=== PATIENT | male | born 1940 | race Caucasian/White ===

== ENCOUNTER 2017-07-08 05:09 | Inpatient (IN) ==
[2017-07-08] MEDS ORDERED: 0.9 % Sodium Chloride 1,000 ML IVC ONE ×2 (05:22→06:44)
[2017-07-08] MEDS ORDERED: Acetaminophen 325 MG TABLET PO ONE (05:25)
[2017-07-08 05:33] LABS: Basophils # 0.1 K/mcL (0.0-0.2); Basophils % 0.5 %; Eosinophils # 0.1 K/mcL (0.0-0.6); Eosinophils % 0.8 %; Hematocrit 34.2 % (37.5-50.1); Hemoglobin 10.2 g/dL (12.9-16.9); Immature Granulocytes % 0.5 % (0-4); Lymphocytes # 0.7 K/mcL (0.6-4.6); Lymphocytes % 5.4 %; Mean Corpuscular HGB Conc 29.8 g/dL (31.6-35.5); Mean Corpuscular Hemoglobin 22.7 pg (28.0-33.3); Mean Platelet Volume 7.9 fL (9.4-12.4); Monocytes # 0.7 K/mcL (0.0-1.3); Neutrophils # 10.6 K/mcL (1.6-8.9); Platelet Count 402 K/mcL (140-400); Red Cell Distribution Width 17.5 % (11.5-14.5); Segmented Neutrophils % 86.8 %
--- NOTE | 2017-07-08 05:35 | Emergency Department Note ---
Disposition Clinical Impression: UTI (urinary tract infection), Sepsis Disposition: Admitted As Inpatient Condition: Fair Time of Disposition: 06:03 General Adult HPI - General Chief complaint: ED Dizziness Stated complaint: dizzy,chills,pain at surg site Time Seen by Provider: 07/08/17 05:11 Source: patient, family Limitations: no limitations Nursing Notes Reviewed: Yes Vital Signs Reviewed: Yes - History of Present Illness HPI Narrative: Pt is a 77-year-old male with a past medical history of HTN, Hyperlipidemia, Cardiac Stent (x 1 2012 and 2013) that presents the ED with chief complaint fever, chills, nausea and abdominal pain over surgical site x 3 days. Patient recently had a right open inguinal hernia by Dr. Lake on 06/18/17. He denies any vomiting, chest pain, shortness of breath, focal deficit, headache, change in vision or any other symptoms such complaints. Patient's son at bedside and states that patient has been slightly confused over the past 2 days. Pt recently had his martinez removed (Thursday) which was in place for 3 weeks prior. He denies any dysuria, urinary urgency/frequency, hematuria or back pain. Pt Subjective Complaint: fever, chills, confusion, pain over right surgical site Onset (ago): day(s) (3) Radiation: non-radiation Pain Scale: 6 Quality: dull Consistency: constant Improves with: nothing Worsens with: nothing Associated symptoms: Reports: denies other symptoms, confusion (mild confusion per son x 2 days), fever/chills, nausea/vomiting (nausea, no vomiting.). Denies : chest pain, cough, diaphoresis, headaches, loss of appetite, malaise, rash, seizure, shortness of breath, syncope, weakness Treatments Prior to Arrival: none - Related Data Home Medications Medication Instructions Recorded Confirmed Aspirin [Lo-Dose Aspirin EC] 81 mg PO DAILY 06/18/17 07/08/17 Clopidogrel [Plavix] 75 mg PO DAILY 06/18/17 07/08/17 Lisinopril [Zestril] 5 mg PO HS 06/18/17 07/08/17 Simvastatin [Zocor] 20 mg PO HS 06/18/17 07/08/17 Nitroglycerin [Nitrostat] 0.4 mg SL Q5M PRN 02/14/18 02/14/18 Tamsulosin [Flomax] 0.4 mg PO DAILY 07/08/17 07/08/17 Allergies Allergy/AdvReac Type Severity Reaction Status Date / Time No Known Allergies Allergy Verified 06/18/17 13:29 All systems ED: reviewed and negative except as stated. Constitutional: Reports: fever, chills. Denies: weakness ENT ED: Denies: ear pain, throat pain, congestion Cardiovascular: Denies: chest pain, palpitations, dyspnea on exertion, syncope, paroxysmal nocturnal dyspnea Respiratory: Denies: cough, dyspnea, wheezes, hemoptysis, sputum production Gastrointestinal: Reports: abdominal pain, nausea. Denies: vomiting, diarrhea, constipation, hematemesis, melena, hematochezia Genitourinary: Denies: urgency, dysuria Musculoskeletal: Denies: back pain, neck pain Integumentary: Denies: rash Neurological: Reports: confusion (mild confusion per son). Denies: headache, weakness, numbness, paresthesias, abnormal gait, vertigo Past Medical History - Past Medical History Source: patient Medical history: Reports: hyperlipidemia, hypertension Psychiatric history: Reports: no psych history - Social History Smoking Status: Never smoker Smokeless Tobacco Status: No Alcohol use: Reports: none Drug use: Reports: none Physical Exam - General Limitations: no limitations General appearance: alert, in no apparent distress - Head Head exam: atraumatic, normocephalic, normal inspection - Eye Eye exam: Present: normal appearance, PERRL, EOMI - ENT ENT exam: normal exam, normal oropharynx, mucous membranes moist - Neck Neck exam: Present: normal inspection, full ROM, trachea midline. Absent: tenderness, meningismus, lymphadenopathy - Chest Chest inspection: Present: normal inspection, symmetric chest wall rise - Respiratory Respiratory exam: Present: normal lung sounds bilaterally. Absent: respiratory distress, wheezes, stridor, accessory muscle use, prolonged expiratory phase - Cardiovascular Cardiovascular exam: Present: regular rate, normal rhythm, normal heart sounds - Abdominal Exam Abdominal exam: Present: soft, tenderness, normal bowel sounds, incision. Absent: distention, guarding, rebound, rigidity - Expanded Lower Extremity Exam Gait: observed and normal - Back Exam Back exam: Present: normal inspection, full ROM. Absent: tenderness, CVA tenderness (R), CVA tenderness (L) - Neurological Exam Neurological exam: Present: alert, oriented X3, CN II-XII intact - Psychiatric Psychiatric exam: Present: normal affect, normal mood - Skin Skin exam: Present: warm, dry, intact, normal color. Absent: rash, cyanosis Course Course Narrative: Pt is a 77-year-old male with a past medical history of HTN, Hyperlipidemia, Cardiac Stent (x 1 2012 and 2013) that presents the ED with chief complaint fever, chills, nausea and abdominal pain over surgical site x 3 days. Patient recently had a right open inguinal hernia by Dr. Lake on 06/18/17. He denies any vomiting, chest pain, shortness of breath, focal deficit, headache, change in vision or any other symptoms such complaints. Patient's son at bedside and states that patient has been slightly confused over the past 2 days. Pt recently had his martinez removed (Thursday) which was in place for 3 weeks prior. He denies any dysuria, urinary urgency/frequency, hematuria or back pain. Patient is a 77-year-old male. Temp 102.1 F. alert and oriented 3. Appears in no acute distress. States he is going to be my Nix. Head normocephalic. No signs of external trauma. Eyes normal inspection. ENT within normal limits. Airway patent. Neck supple, full range motion, nontender. No signs of meningeal irritation. Heart RRR. Lungs CTAB. Abdomen soft, healing wound to right inguinal region. There is no redness, swelling or discharge noted. There is mild tenderness over previous surgical site. No guarding or rebound noted. Normal bowel sounds. Back normal inspection, nontender. Extremities within normal limits. Neuro no focal neurological deficits noted on exam. Septic workup initiated with CT of abd and pelvis since recent surgery. IV fluids given. Tylenol given. I have high suspicion that pt's symptoms are secondary to a UTI, since pt is 3 weeks out of surgery. WBC 12.3, hemoglobin 10.2 UA +nitrites Levaquin started. CT shows:1. 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 Surrounding pericystic edema. No pelvic abscess. Urology consultation and follow-up recommended to ensure resolution and exclude a superimposed bladder neoplasm. Discussed case with Urology. He recommended to continue with levaquin and they will see pt in the hospital as well as see what his urine grows out. Discussed case with Dr. Benitez. He will accept pt. Will consult Dr. Lake's group per Dr. Benitez request. Discussed case with Dr. Lake. He is aware of pt and states there is nothing else they need to do in regards to his hernia repair and to treat his UTI. BP 94/56. Pt currently sleeping in the room. Additional bag of fluids given. At this time pt doesn't need a central line will continue to monitor vitals. Discussed case with Dr. Andrade. He had face to face time pt and agrees with my assessment and tx plan. - Reevaluation(s) Reevaluation #1: BP 103/53. Pt sleeping in room, currently waiting on bed on floor. Time: 08:08 Vital Signs Temperature 102.1 F H 07/08/17 05:14 Pulse Rate 97 07/08/17 05:14 Respiratory Rate 16 07/08/17 05:14 Blood Pressure 107/66 07/08/17 05:14 O2 Sat by Pulse Oximetry 97 07/08/17 05:14 Temperature 100.6 F H 07/08/17 06:37 Pulse Rate 89 07/08/17 07:45 Respiratory Rate 18 07/08/17 07:45 Blood Pressure 99/59 07/08/17 07:45 O2 Sat by Pulse Oximetry 96 07/08/17 07:45 Oxygen Delivery Oxygen Delivery Room Air Medical Decision Making - Medical Records Medical records reviewed: Yes I reviewed the patient's medical records. - Lab Data Lab results reviewed: Yes I reviewed the patient's lab results. Result diagrams: 07/08/17 05:23 07/08/17 05:23 Lab Results 07/08/17 07/08/17 07/08/17 Range/Units 05:23 05:23 05:23 WBC 12.3 H (4.3-11.1) K/mcL RBC 4.50 (4.19-5.50) M/mcL Hgb 10.2 L (12.9-16.9) g/dL Hct 34.2 L (37.5-50.1) % MCV 76.0 L (83.0-100.0) fL MCH 22.7 L (28.0-33.3) pg MCHC 29.8 L (31.6-35.5) g/dL RDW 17.5 H (11.5-14.5) % Plt Count 402 H (140-400) K/mcL MPV 7.9 L (9.4-12.4) fL Immature Gran % 0.5 (0-4) % Seg Neutrophils % 86.8 % Lymphocytes % 5.4 % Monocytes % 6.0 % Eosinophils % 0.8 % Basophils % 0.5 % Neutrophils # 10.6 H (1.6-8.9) K/mcL Lymphocytes # 0.7 (0.6-4.6) K/mcL Monocytes # 0.7 (0.0-1.3) K/mcL Eosinophils # 0.1 (0.0-0.6) K/mcL Basophils # 0.1 (0.0-0.2) K/mcL PT 11.8 (9.4-12.1) Seconds INR 1.1 APTT 25.8 L (26.0-36.0) Seconds Sodium 134 L (136-145) mEq/L Potassium 4.5 (3.5-5.1) mEq/L Chloride 103 (98-107) mEq/L Carbon Dioxide 23 (23-29) mEq/L BUN 25 H (8-23) mg/dL Creatinine 1.10 (0.70-1.30) mg/dL Est GFR ( Amer) > 60 (> 60) Est GFR (Non-Af Amer) > 60 (> 60) BUN/Creatinine Ratio 23 (6-26) Glucose 142 H (70-105) mg/dL Calculated Osmolality 285 (280-300) Lactic Acid (0.5-2.2) mmol/L Calcium 9.2 (8.6-10.3) mg/dL Magnesium 2.1 (1.6-2.6) mg/dL Total Bilirubin 0.7 (0.3-1.0) mg/dL Direct Bilirubin 0.1 (0.0-0.2) mg/dL Indirect Bilirubin 0.6 (0.0-1.2) mg/dL AST 16 (13-39) Units/L ALT 9 (7-52) Units/L Alkaline Phosphatase 108 H (34-104) Units/L Troponin I (< 0.04) ng/mL Serum Total Protein 7.4 (6.4-8.9) g/dL Albumin 4.0 (3.5-5.7) g/dL Globulin 3.4 (2.4-3.5) g/dL Albumin/Globulin Ratio 1.2 (1.1-2.2) Urine Color (Yellow) Urine Clarity (Clear) Urine pH (5.0-8.0) pH Units Ur Specific Golden (1.010-1.025) Urine Protein (Neg-Trace) mg/dL Urine Glucose (UA) (Normal) mg/dL Urine Ketones (Negative) mg/dL Urine Blood (Negative) Urine Nitrite (Negative) Urine Bilirubin (Negative) Urine Urobilinogen (Normal) mg/dL Ur Leukocyte Esterase (Negative) Urine Microscopic RBC (0-3) per hpf Urine Microscopic WBC (0-3) per hpf Ur Squamous Epith Cells (None-Few) per lpf Urine Bacteria (None-Few) per hpf Hyaline Casts (None-Few) per lpf Ur Culture Indicated? (NO) 07/08/17 07/08/17 07/08/17 Range/Units 05:23 05:23 06:00 WBC (4.3-11.1) K/mcL RBC (4.19-5.50) M/mcL Hgb (12.9-16.9) g/dL Hct (37.5-50.1) % MCV (83.0-100.0) fL MCH (28.0-33.3) pg MCHC (31.6-35.5) g/dL RDW (11.5-14.5) % Plt Count (140-400) K/mcL MPV (9.4-12.4) fL Immature Gran % (0-4) % Seg Neutrophils % % Lymphocytes % % Monocytes % % Eosinophils % % Basophils % % Neutrophils # (1.6-8.9) K/mcL Lymphocytes # (0.6-4.6) K/mcL Monocytes # (0.0-1.3) K/mcL Eosinophils # (0.0-0.6) K/mcL Basophils # (0.0-0.2) K/mcL PT (9.4-12.1) Seconds INR APTT (26.0-36.0) Seconds Sodium (136-145) mEq/L Potassium (3.5-5.1) mEq/L Chloride (98-107) mEq/L Carbon Dioxide (23-29) mEq/L BUN (8-23) mg/dL Creatinine (0.70-1.30) mg/dL Est GFR ( Amer) (> 60) Est GFR (Non-Af Amer) (> 60) BUN/Creatinine Ratio (6-26) Glucose (70-105) mg/dL Calculated Osmolality (280-300) Lactic Acid 1.5 (0.5-2.2) mmol/L Calcium (8.6-10.3) mg/dL Magnesium (1.6-2.6) mg/dL Total Bilirubin (0.3-1.0) mg/dL Direct Bilirubin (0.0-0.2) mg/dL Indirect Bilirubin (0.0-1.2) mg/dL AST (13-39) Units/L ALT (7-52) Units/L Alkaline Phosphatase (34-104) Units/L Troponin I < 0.03 (< 0.04) ng/mL Serum Total Protein (6.4-8.9) g/dL Albumin (3.5-5.7) g/dL Globulin (2.4-3.5) g/dL Albumin/Globulin Ratio (1.1-2.2) Urine Color Yellow (Yellow) Urine Clarity Turbid A (Clear) Urine pH 8.0 (5.0-8.0) pH Units Ur Specific Golden 1.020 (1.010-1.025) Urine Protein >=300 H (Neg-Trace) mg/dL Urine Glucose (UA) Normal (Normal) mg/dL Urine Ketones Negative (Negative) mg/dL Urine Blood Moderate H (Negative) Urine Nitrite Positive A (Negative) Urine Bilirubin Negative (Negative) Urine Urobilinogen Normal (Normal) mg/dL Ur Leukocyte Esterase Moderate H (Negative) Urine Microscopic RBC 50-100 H (0-3) per hpf Urine Microscopic WBC TNTC H (0-3) per hpf Ur Squamous Epith Cells Few (None-Few) per lpf Urine Bacteria Moderate H (None-Few) per hpf Hyaline Casts None Seen (None-Few) per lpf Ur Culture Indicated? YES A (NO) - Radiology Data Radiology results reviewed: Yes I reviewed the patient's radiology results. Attestation Statement - Attestation Attestation: I, Irwin Andrade MD, personally evaluated this patient and discussed their management with the midlevel provicer, PAC/GREENHOUSE INSTRUCTOR. I reviewed the midlevel provider 's note and agree with the documented findings, medical decision making, and plan of care. 77-year-old male presents to the emergency department with a complaint of chills and subjective fever for one day prior to arrival. He also complains of dizziness and off balance. Patient is about 3 weeks status post right inguinal hernia repair. Son states that he has been sick ever since surgery. He did have an indwelling Maritnez catheter which was just removed a few days ago. He complains of pain in the lower abdomen. No vomiting or diarrhea. No dysuria or gross hematuria. No GI bleed symptoms. No cough or chest pain or shortness of breath. On examination patient is a well-developed well-nourished elderly male in no acute distress. He is alert and oriented 3. There is no cyanosis or diaphoresis. Breath sounds are clear and equal bilaterally. Heart regular rate and rhythm. Abdomen is soft with normal bowel sounds. There is mild mid lower abdominal tenderness. Labs reviewed. Mild leukocytosis. Significant UTI. The hospitalist, Dr. Robertson, was consulted and accepted admission of the patient.
[2017-07-08 05:41] LABS: INR 1.1; Prothrombin Time 11.8 Seconds (9.4-12.1)
[2017-07-08 05:44] LABS: Activated Partial Thrombo Time 25.8 Seconds (26.0-36.0)
[2017-07-08 05:53] LABS: Alanine Aminotransferase 9 Units/L (7-52); Albumin/Globulin Ratio 1.2 (1.1-2.2); Alkaline Phosphatase 108 Units/L (34-104); Aspartate Amino Transferase 16 Units/L (13-39); BUN/Creatinine Ratio 23 (6-26); Bilirubin,Direct 0.1 mg/dL (0.0-0.2); Bilirubin,Indirect 0.6 mg/dL (0.0-1.2); Bilirubin,Total 0.7 mg/dL (0.3-1.0); Blood Urea Nitrogen 25 mg/dL (8-23); Calcium 9.2 mg/dL (8.6-10.3); Carbon Dioxide 23 mEq/L (23-29); Chloride 103 mEq/L (98-107); Globulin 3.4 g/dL (2.4-3.5); Glucose 142 mg/dL (70-105); Magnesium 2.1 mg/dL (1.6-2.6); Osmolality,Calculated 285 (280-300); Potassium 4.5 mEq/L (3.5-5.1); Sodium 134 mEq/L (136-145); Total Protein 7.4 g/dL (6.4-8.9); eGFR For African Americans > 60 (> 60); eGFR For Non-African Americans > 60 (> 60)
[2017-07-08 06:15] LABS: Bilirubin,Urine Negative (Negative); Blood,Urine Moderate (Negative); Clarity,Urine Turbid (Clear); Color,Urine Yellow (Yellow); Glucose,Urine (UA) Normal (Normal); Ketones,Urine Negative (Negative); Leukocyte Esterase,Urine Moderate (Negative); Nitrite,Urine Positive (Negative); Protein,Urine >=300 mg/dL (Neg-Trace); Urobilinogen,Urine Normal (Normal)
[2017-07-08 06:16] LABS: Bacteria,Urine Moderate per hpf (None-Few); Hyaline Casts,Urine None Seen per lpf (None-Few); RBC,Urine 50-100 per hpf (0-3); Squamous Epithelial Cell,Urine Few per lpf (None-Few); WBC,Urine TNTC per hpf (0-3)
[2017-07-08] MEDS ORDERED: Levofloxacin 750 MG/150 ML 750 MG/150 ML BAG IVPB ONE (06:34)
[2017-07-08] MEDS ORDERED: 0.9 % Sodium Chloride 1,000 ML ONE (06:40)
--- NOTE | 2017-07-08 10:21 | Internal Med History&Physical ---
Date of Encounter: 07/08/17 Time of Encounter: 10:19 Assessment and Plan (1) Coronary artery disease Current visit: Yes Status: Acute Continue with dual antiplatelet therapy and statin. Qualifiers: Coronary Disease-Associated Artery/Lesion type: saxman artery [place] vs. transplanted heart: saxman heart Associated angina: without angina Qualified Code(s): I25.10 - Atherosclerotic heart disease of saxman coronary artery without angina pectoris (2) Microcytic hypochromic anemia Current visit: Yes Status: Acute We will check iron panel. (3) Chronic constipation Current visit: Yes Status: Acute We will provide stool softener and laxative as needed. (4) Acute cystitis with hematuria Current visit: Yes Status: Acute CT of the abdomen and pelvis shows findings consistent with emphysematous cystitis. Urinalysis positive for blood nitride and WBC. He has symptoms of UTI. We will continue with Levaquin. We will add Zosyn for anaerobic coverage. Follow-up urine culture and sensitivities and adjust antibiotic therapy accordingly. Consult urology. We will get post void bladder residuals. (5) DVT prophylaxis Current visit: Yes Status: Acute SCDs. Avoid anticoagulation due to dual antiplatelet therapy and microcytic anemia (6) Status post hernia repair Current visit: Yes Status: Acute Incisions appear to be healing well. CT abdomen and pelvis shows no apparent complications. The patient tolerates diet and passing gas and had a bowel movement. At this point surgical consult is not needed. We will monitor postoperative recovery. (7) Sepsis Current visit: Yes Status: Acute Likely secondary to UTI. Initial lactic acid was within normal limits. Patient is not hypotensive. Severe sepsis and shock were ruled out. We will continue treatment with broad-spectrum antibiotics adding Zosyn for anaerobic coverage. Follow-up blood cultures. Qualifiers: Sepsis type: sepsis due to unspecified organism Qualified Code(s): A41.9 - Sepsis, unspecified organism Internal Medicine - H&P: HPI Chief complaint: Abdominal pain Admitted From: Emergency Dept Plans for Post Hospital Care: Home History of present illness: Mr. Prince is a 77 year old male with past medical history of hypertension , CAD status post stent and recent open hernia surgery done on 06/18/2016 who presents to the hospital for abdominal pain. For the past 3 days he reports crampy, moderate to severe lower abdominal pain associated with subjective fevers, chills confusion and dizziness. Pain is sometimes worse with urination. He has been able to pass urine but was reports urinary frequency and dysuria. His postoperative course was complicated by urinary retention which required bladder catheterization. The Rodarte catheter was removed 2 days ago. Patient reports chronic constipation, he states he had a bowel movement yesterday. A 10 point review of systems was negative except as stated above. Family history reviewed and found to be noncontributory. Social history: Lives at home, independent, denies tobacco alcohol or drug use. Past Med Surg Social Fam HX - Past Medical History Medical history: hyperlipidemia, hypertension Psychiatric history: no psych history - Social History Smoking Status: Never smoker Smokeless Tobacco Status: No Alcohol use: none Drug use: none Internal Medicine - H&P: Meds Aspirin [Lo-Dose Aspirin EC] 81 mg PO DAILY 06/18/17 [History] Clopidogrel [Plavix] 75 mg PO DAILY 06/18/17 [History] Lisinopril [Zestril] 5 mg PO HS 06/18/17 [History] Simvastatin [Zocor] 20 mg PO HS 06/18/17 [History] Nitroglycerin [Nitrostat] 0.4 mg SL Q5M PRN 07/08/17 [History] Tamsulosin [Flomax] 0.4 mg PO DAILY 07/08/17 [History] 3 Allergy/AdvReac Type Severity Reaction Status Date / Time No Known Allergies Allergy Verified 06/18/17 13:29 All Systems PM: A 10-system review of systems was performed and is negative for pertinent findings except as documented above in the HPI. - Constitutional Vitals: Temp Pulse Resp BP Pulse Ox 100.0 F H 74 16 108/63 97 07/08/17 09:16 07/08/17 09:16 07/08/17 09:16 07/08/17 09:16 07/08/17 09:16 General appearance: Present: A&O X 3, no acute distress - GI/Abdominal GI/Abdominal exam: Present: normal bowel sounds, soft, no peritoneal signs. Absent: distended, tenderness Additional comments: Surgical incision in the suprapubic area is healing well. - exam: Present: normal inspection. Absent: circumcision, scrotal swelling, testicular tenderness, urethral discharge External exam: Present: normal external exam. Absent: lesions, swelling Additional comments: Positive suprapubic tenderness. Negative CVA tenderness. - Extremities Exam Extremities exam: Present: warm, radial pulses palpable and symmetrical. Absent : calf tenderness, cyanotic, pedal edema - Neurological Exam Neurological exam: Present: CN II-XII intact, oriented X3, no focal deficits. Absent: pronater drift, facial droop, speech deficit - Skin Skin exam: Present: dry, intact Internal Med - H&P Results - Labs CBC & Chem 7: 07/08/17 05:23 07/08/17 05:23 Labs: Per chart review hemoglobin in 06/05/2017 was 10.0. White blood cell count at that time was 6.7.
[2017-07-08] MEDS ORDERED: Ondansetron 4 MG/2 ML VIAL IVP PRN (10:38)
[2017-07-08] MEDS ORDERED: 0.9 % Sodium Chloride 1,000 ML IVC SCH (10:45)
[2017-07-08] MEDS: Acetaminophen 325 MG TABLET PO PRN ×2 (11:24→20:29)
[2017-07-08] MEDS: Aspirin Enteric Coated 81 MG Tablet PO SCH (11:24)
[2017-07-08] MEDS: Sennosides/Docusate Sodium TABLET PO SCH ×2 (11:27→20:16)
--- NOTE | 2017-07-08 12:16 | Electrocardiograph Report ---
[place] [id number] Test Date: 2017-07-08 Pat Name: [place]at[place] Prince Department: 102 Room: 3B12 Gender: M Vp: Camelia : 1940 Requested By: Kendra Fernandes Order Number: [id number] Reading MD: Vincent Jon MD Measurements Intervals [place] Rate: 82 P: 29 WI: 143 QRS: -1 QRSD: 78 T: 67 QT: 358 QTc: 397 Interpretive Statements SINUS RHYTHM Electronically Signed On 07-08-2017 12:14:52 EST by Vincent Jon MD
--- NOTE | 2017-07-08 17:12 | Urology - Consult Note ---
Date of Encounter: 07/08/17 Time of Encounter: 17:09 - Assessment and Plan (1) Sepsis Current Visit: Yes Status: Acute Assessment and plan: 77-year-old gentleman with a urinary tract infection and a fever. He is on Levaquin and Zosyn. We'll monitor his temperature curve. Continue antibiotic until urine cultures have returned. He is voiding well and has not gone back into retention. We will continue to monitor for now. Appreciate internal medicine support. Qualifiers: Sepsis type: sepsis due to unspecified organism Qualified Code(s): A41.9 - Sepsis, unspecified organism (2) UTI (urinary tract infection) Current Visit: Yes Status: Acute Assessment and plan: I will await the results of urine culture. Continue antibiotics until they return. Qualifiers: Qualified Code(s): N39.0 - Urinary tract infection, site not specified Urology CN:LUIS ALBERTO Consult date: 07/08/17 Reason for consult Urology: Other (UTI) Requesting physician: Antonino Worthy History of present illness: 77-year-old man status post right open inguinal hernia from June 18, 2017. He developed urinary retention afterwards. He was started on tamsulosin and eventually passed a voiding trial on July 06, 2017. He then developed fevers and chills yesterday with altered mental status. He was brought to the emergency department and was admitted for a urinary tract infection with sepsis. A CT scan showed evidence of prostatic hyperplasia with a diverticulum extending off the dome of the bladder to the left side. 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 He says he is feeling better today. His fever curve has improved. He is voiding well. Past Med Surg Social Fam HX - Past Medical History Medical history: hyperlipidemia, hypertension Psychiatric history: no psych history - Past Surgical History Surgical History: herniorrhaphy - Social History Smoking Status: Never smoker Smokeless Tobacco Status: No Alcohol use: none Drug use: none - Family History Mother Living Status: Hx Family Cancer: Yes (Breast) Father Living Status: Age at : 75 Cause of : [place] Hx Family Cardiac Disorders: Yes Medications and Allergies Aspirin [Lo-Dose Aspirin EC] 81 mg PO DAILY 06/18/17 [History] Clopidogrel [Plavix] 75 mg PO DAILY 06/18/17 [History] Lisinopril [Zestril] 5 mg PO HS 06/18/17 [History] Simvastatin [Zocor] 20 mg PO HS 06/18/17 [History] Nitroglycerin [Nitrostat] 0.4 mg SL Q5M PRN 07/08/17 [History] Tamsulosin [Flomax] 0.4 mg PO DAILY 07/08/17 [History] 3 Allergy/AdvReac Type Severity Reaction Status Date / Time No Known Allergies Allergy Verified 06/18/17 13:29 Review of Systems - Constitutional chills, fever(s) - EENT Nose, mouth and throat: no dizziness - Cardiovascular no chest pain - Respiratory no dyspnea - Gastrointestinal no nausea, no vomiting - Genitourinary no flank pain, no hematuria - Musculoskeletal no back pain - Integumentary no erythema, no rash - Neurological no weakness - Psychiatric no suicidal ideation - Hematologic/Lymphatic no easy bleeding - Allergic/Immunologic no wheezing Exam Initial Vital Signs Temp Pulse Resp BP Pulse Ox 102.1 F H 97 16 107/66 97 07/08/17 05:14 07/08/17 05:14 07/08/17 05:14 07/08/17 05:14 07/08/17 05:14 - General physical appearance Present: well developed, well nourished, no distress - Eyes Absent: icteric - ENT Present: normal nares - Neck Present: trachea midline - Respiratory Present: normal respiratory effort - Cardiovascular Cardiovascular exam IM: RRR - Abdomen Abdomen: Present: soft - Genitourinary normal penis with no external lesions - Integumentary Present: no rash - Neurologic Present: normal coordination - Musculoskeletal Present: other (no edema) Urology Results - Labs 07/08/17 05:23 07/08/17 05:23 Abnormal lab results WBC 12.3 K/mcL (4.3-11.1) H 07/08/17 05:23 Hgb 10.2 g/dL (12.9-16.9) L 07/08/17 05:23 Hct 34.2 % (37.5-50.1) L 07/08/17 05:23 MCV 76.0 fL (83.0-100.0) L 07/08/17 05:23 MCH 22.7 pg (28.0-33.3) L 07/08/17 05:23 MCHC 29.8 g/dL (31.6-35.5) L 07/08/17 05:23 RDW 17.5 % (11.5-14.5) H 07/08/17 05:23 Plt Count 402 K/mcL (140-400) H 07/08/17 05:23 MPV 7.9 fL (9.4-12.4) L 07/08/17 05:23 Neutrophils # 10.6 K/mcL (1.6-8.9) H 07/08/17 05:23 APTT 25.8 Seconds (26.0-36.0) L 07/08/17 05:23 Sodium 134 mEq/L (136-145) L 07/08/17 05:23 BUN 25 mg/dL (8-23) H 07/08/17 05:23 Glucose 142 mg/dL (70-105) H 07/08/17 05:23 Alkaline Phosphatase 108 Units/L (34-104) H 07/08/17 05:23 Urine Clarity Turbid (Clear) A 07/08/17 06:00 Urine Protein >=300 mg/dL (Neg-Trace) H 07/08/17 06:00 Urine Blood Moderate (Negative) H 07/08/17 06:00 Urine Nitrite Positive (Negative) A 07/08/17 06:00 Ur Leukocyte Esterase Moderate (Negative) H 07/08/17 06:00 Urine Microscopic RBC 50-100 per hpf (0-3) H 07/08/17 06:00 Urine Microscopic WBC TNTC per hpf (0-3) H 07/08/17 06:00 Urine Bacteria Moderate per hpf (None-Few) H 07/08/17 06:00 Ur Culture Indicated? YES (NO) A 07/08/17 06:00 All other labs normal. - Imaging CT scan - abdomen: report reviewed, image reviewed CT scan - pelvis: report reviewed, image reviewed Consult Discharge Plan - Plan Referrals: Luiz Hyatt MD [Primary Care Provider] -
[2017-07-09 05:16] LABS: Basophils # 0.1 K/mcL (0.0-0.2); Basophils % 0.5 %; Eosinophils # 0.5 K/mcL (0.0-0.6); Hematocrit 31.6 % (37.5-50.1); Hemoglobin 9.3 g/dL (12.9-16.9); Immature Granulocytes % 0.5 % (0-4); Lymphocytes # 1.2 K/mcL (0.6-4.6); Lymphocytes % 8.8 %; Mean Corpuscular HGB Conc 29.4 g/dL (31.6-35.5); Mean Corpuscular Hemoglobin 22.7 pg (28.0-33.3); Mean Corpuscular Volume 77.1 fL (83.0-100.0); Mean Platelet Volume 8.6 fL (9.4-12.4); Monocytes # 1.3 K/mcL (0.0-1.3); Monocytes % 9.6 %; Neutrophils # 10.1 K/mcL (1.6-8.9); Platelet Count 324 K/mcL (140-400); Red Cell Distribution Width 17.8 % (11.5-14.5); Segmented Neutrophils % 76.6 %
[2017-07-09 05:46] LABS: BUN/Creatinine Ratio 17 (6-26); Blood Urea Nitrogen 18 mg/dL (8-23); Calcium 8.6 mg/dL (8.6-10.3); Carbon Dioxide 23 mEq/L (23-29); Chloride 108 mEq/L (98-107); Ferritin 46 ng/ml (20-250); Glucose 111 mg/dL (70-105); Iron < 10 mcg/dL (65-175); Magnesium 2.2 mg/dL (1.6-2.6); Osmolality,Calculated 287 (280-300); Potassium 4.1 mEq/L (3.5-5.1); Sodium 137 mEq/L (136-145); Transferrin 257 mg/dL (203-362); eGFR For African Americans > 60 (> 60); eGFR For Non-African Americans > 60 (> 60)
--- NOTE | 2017-07-09 07:38 | Urology Progress Note ---
Date of Encounter: 07/09/17 Time of Encounter: 07:37 - Assessment and Plan (1) Sepsis Current Visit: Yes Status: Acute Assessment and plan: Sepsis is improving. Will await final urine culture results. Qualifiers: Sepsis type: sepsis due to unspecified organism Qualified Code(s): A41.9 - Sepsis, unspecified organism (2) UTI (urinary tract infection) Current Visit: Yes Status: Acute Qualifiers: Qualified Code(s): N39.0 - Urinary tract infection, site not specified Progress Note Narrative: Doing well today. He is voiding without issue. No fevers overnight. Culture growing out GNR and enterococcus. Objective Initial Vital Signs Temp Pulse Resp BP Pulse Ox 102.1 F H 97 16 107/66 97 07/08/17 05:14 07/08/17 05:14 07/08/17 05:14 07/08/17 05:14 07/08/17 05:14 - General physical appearance Present: well developed, well nourished, no distress - Respiratory Present: normal respiratory effort - Abdomen Present: soft - Labs 07/09/17 04:25 07/09/17 04:25 Diabetes panel 07/09/17 Range/Units 04:25 Sodium 137 (136-145) mEq/L Potassium 4.1 (3.5-5.1) mEq/L Chloride 108 H (98-107) mEq/L Carbon Dioxide 23 (23-29) mEq/L BUN 18 (8-23) mg/dL Creatinine 1.08 (0.70-1.30) mg/dL Glucose 111 H (70-105) mg/dL Calcium 8.6 (8.6-10.3) mg/dL Calcium panel 07/09/17 Range/Units 04:25 Calcium 8.6 (8.6-10.3) mg/dL Pituitary panel 07/09/17 Range/Units 04:25 Sodium 137 (136-145) mEq/L Potassium 4.1 (3.5-5.1) mEq/L Chloride 108 H (98-107) mEq/L Carbon Dioxide 23 (23-29) mEq/L BUN 18 (8-23) mg/dL Creatinine 1.08 (0.70-1.30) mg/dL Glucose 111 H (70-105) mg/dL Calcium 8.6 (8.6-10.3) mg/dL Adrenal panel 07/09/17 Range/Units 04:25 Sodium 137 (136-145) mEq/L Potassium 4.1 (3.5-5.1) mEq/L Chloride 108 H (98-107) mEq/L Carbon Dioxide 23 (23-29) mEq/L BUN 18 (8-23) mg/dL Creatinine 1.08 (0.70-1.30) mg/dL Glucose 111 H (70-105) mg/dL Calcium 8.6 (8.6-10.3) mg/dL Consult Discharge Plan - Plan Referrals: Luiz Hyatt MD [Primary Care Provider] -
[2017-07-09] MEDS: Sennosides/Docusate Sodium TABLET PO SCH ×2 (08:35→21:00)
[2017-07-09] MEDS: Aspirin Enteric Coated 81 MG Tablet PO SCH (08:35)
--- NOTE | 2017-07-09 08:40 | Internal Med Progress Note ---
Date of Encounter: 07/09/17 Time of Encounter: 08:39 - Assessment and plan (1) Sepsis Current Visit: Yes Status: Acute Assessment and plan: Most likely secondary to UTI initial lactate was within normal limits. He has been afebrile today systolic has been in the mid 100s. Preliminary blood cultures did reveal gram-negative rods and enterococcus species. We will stop Zosyn and initiate meropenem Qualifiers: Sepsis type: sepsis due to unspecified organism Qualified Code(s): A41.9 - Sepsis, unspecified organism (2) Acute cystitis with hematuria Current Visit: Yes Status: Acute Assessment and plan: CT of the abdomen and pelvis shows findings consistent with emphysematous cystitis. He has symptoms of UTI as well as urinalysis positive for UTI. Pulmonary urine culture shows gram-negative ronaldo as well as enterococcus. We will place on meropenem. Follow up urine culture and sensitivities and adjust antibiotic therapy accordingly. Urology has been consulted-monitor post void bladder residuals (3) Coronary artery disease Current Visit: Yes Status: Acute Assessment and plan: 1 continue with dual antiplatelet therapy and statin Qualifiers: Coronary Disease-Associated Artery/Lesion type: [place] artery [place] vs. transplanted heart: [place] heart Associated angina: without angina Qualified Code(s): I25.10 - Atherosclerotic heart disease of [place] coronary artery without angina pectoris (4) Microcytic hypochromic anemia Current Visit: Yes Status: Acute (5) Status post hernia repair Current Visit: Yes Status: Acute Assessment and plan: Incision healing well. CT abdomen pelvis show no apparent complications. Patient tolerated diet passing gas he is experiencing bowel movements (6) DVT prophylaxis Current Visit: Yes Status: Acute Assessment and plan: SCDs patient's on dual antiplatelet therapy microcytic anemia - Time Spent With Patient less than 15 minutes - Subjective Interval history: Feels better today, denies any urinary sx or pain or discomfort - Constitutional Vitals: Temp Pulse Resp BP Pulse Ox 99.1 F 72 14 110/63 97 07/09/17 07:30 07/09/17 07:30 07/09/17 07:30 07/09/17 07:30 07/09/17 07:30 General appearance: Present: A&O X 3, no acute distress Internal Medicine: Result - Labs CBC & Chem 7: 07/09/17 04:25 07/09/17 04:25 Labs: Short CBC 07/09/17 Range/Units 04:25 WBC 13.2 H (4.3-11.1) K/mcL Hgb 9.3 L (12.9-16.9) g/dL Hct 31.6 L (37.5-50.1) % Plt Count 324 (140-400) K/mcL Neutrophils # 10.1 H (1.6-8.9) K/mcL BMP 07/09/17 04:25 Sodium 137 Potassium 4.1 Chloride 108 H Carbon Dioxide 23 BUN 18 Creatinine 1.08 Glucose 111 H Calcium 8.6 - ABG Interpretation ABG results: PT/INR, D-dimer PT 11.8 Seconds (9.4-12.1) 07/08/17 05:23 Consult Discharge Plan - Plan Referrals: Luiz Hyatt MD [Primary Care Provider] -
[2017-07-09] MEDS: Meropenem 1,000 MG in Water for inj. (sterile) 20 ML 10 ML IVP SCH (17:39)
[2017-07-09] MEDS: Acetaminophen 325 MG TABLET PO PRN (23:16)
[2017-07-10] MEDS: Meropenem 1,000 MG in Water for inj. (sterile) 20 ML 10 ML IVP SCH ×3 (02:06→17:20)
[2017-07-10 05:28] LABS: Basophils # 0.1 K/mcL (0.0-0.2); Basophils % 0.9 %; Eosinophils # 0.8 K/mcL (0.0-0.6); Eosinophils % 9.9 %; Hematocrit 29.7 % (37.5-50.1); Hemoglobin 8.8 g/dL (12.9-16.9); Immature Granulocytes % 0.5 % (0-4); Lymphocytes # 1.3 K/mcL (0.6-4.6); Lymphocytes % 16.6 %; Mean Corpuscular HGB Conc 29.6 g/dL (31.6-35.5); Mean Corpuscular Hemoglobin 22.8 pg (28.0-33.3); Mean Corpuscular Volume 76.9 fL (83.0-100.0); Mean Platelet Volume 8.7 fL (9.4-12.4); Monocytes # 1.2 K/mcL (0.0-1.3); Monocytes % 15.6 %; Neutrophils # 4.5 K/mcL (1.6-8.9); Platelet Count 296 K/mcL (140-400); Red Blood Count 3.86 M/mcL (4.19-5.50); Red Cell Distribution Width 17.8 % (11.5-14.5); Segmented Neutrophils % 56.5 %
[2017-07-10 06:08] LABS: BUN/Creatinine Ratio 21 (6-26); Blood Urea Nitrogen 23 mg/dL (8-23); Calcium 8.7 mg/dL (8.6-10.3); Carbon Dioxide 22 mEq/L (23-29); Chloride 109 mEq/L (98-107); Glucose 100 mg/dL (70-105); Osmolality,Calculated 290 (280-300); Potassium 4.4 mEq/L (3.5-5.1); Sodium 138 mEq/L (136-145); eGFR For African Americans > 60 (> 60); eGFR For Non-African Americans > 60 (> 60)
[2017-07-10 06:09] LABS: Iron < 10 mcg/dL (65-175); Transferrin 257 mg/dL (203-362)
[2017-07-10 06:11] LABS: Hypochromasia Present (Not Present); Platelet Estimate Normal (Normal)
[2017-07-10] MEDS: Aspirin Enteric Coated 81 MG Tablet PO SCH (09:45)
[2017-07-10] MEDS: Sennosides/Docusate Sodium TABLET PO SCH ×2 (09:45→20:17)
--- NOTE | 2017-07-10 10:09 | Internal Med Progress Note ---
Date of Encounter: 07/10/17 Time of Encounter: 10:07 - Assessment and plan (1) Sepsis Current Visit: Yes Status: Acute Assessment and plan: Most likely secondary to UTI initial lactate was within normal limits. He has been afebrile today BP stable, urine culture shows Enterobacter cloaca complex enterococcus species, sensitive to meropenem will add doxycycline to cover Enteroccus speccies , blood cultures are negative Qualifiers: Sepsis type: sepsis due to unspecified organism Qualified Code(s): A41.9 - Sepsis, unspecified organism (2) Acute cystitis with hematuria Current Visit: Yes Status: Acute Assessment and plan: CT of the abdomen and pelvis shows findings consistent with emphysematous cystitis. He has symptoms of UTI as well as urinalysis positive for UTi. Urinary culture , Enterobacter cloaca complex enterococcus species, sensitive to meropenem will add doxycycline to cover Enteroccus speccies, Postvoid residuals did show 4-500 mL-fully catheter has been placed urology has been consulted (3) Coronary artery disease Current Visit: Yes Status: Acute Assessment and plan: 1 continue with dual antiplatelet therapy and statin Qualifiers: Coronary Disease-Associated Artery/Lesion type: [place] artery [place] vs. transplanted heart: [place] heart Associated angina: without angina Qualified Code(s): I25.10 - Atherosclerotic heart disease of [place] coronary artery without angina pectoris (4) Status post hernia repair Current Visit: Yes Status: Acute Assessment and plan: Incision healing well. CT abdomen pelvis show no apparent complications. Patient tolerated diet passing gas he is experiencing bowel movements (5) DVT prophylaxis Current Visit: Yes Status: Acute Assessment and plan: SCDs patient's on dual antiplatelet therapy microcytic anemia (6) Microcytic hypochromic anemia Current Visit: Yes Status: Acute Assessment and plan: 1 was down today 8.8 down from yesterday 9.3 we will add iron continued trend hemoglobin 2 we will obtain stool for occult blood-patient is on aspirin and Plavix 3 Prilosec - Time Spent With Patient less than 15 minutes - Subjective Interval history: He had some constipation howeve rhad BM today. Also had some difficulty emptying bladder yesterday afternoon PVR 400- 500 X 2 Rodarte placed, feels beetter with no urinary sx at this time - Constitutional Vitals: Temp Pulse Resp BP Pulse Ox 98.3 F 64 18 123/75 97 07/10/17 07:12 02/16/18 07:12 07/10/17 07:12 07/10/17 07:12 07/10/17 07:12 General appearance: Present: A&O X 3, no acute distress - Head Head exam: Present: atraumatic, normocephalic - Eye Eye exam: Present: PERRL, conjuntiva pink, sclera anicteric Pupils: Present: PERRL - Neck Neck exam general surgery: Present: supple, trachea midline. Absent: lymphadenopathy - Respiratory Respiratory exam: Present: CTAB. Absent: accessory muscle use, rales, rhonchi, wheezes - Cardiovascular Cardiovascular exam: Present: RRR, +S1, +S2. Absent: diastolic murmur, gallop, rubs, systolic murmur - GI/Abdominal GI/Abdominal exam: Present: normal bowel sounds, soft, no peritoneal signs. Absent: distended, tenderness Internal Medicine: Result - Labs CBC & Chem 7: 07/10/17 04:40 07/10/17 04:40 Labs: Short CBC 07/10/17 Range/Units 04:40 WBC 7.9 (4.3-11.1) K/mcL Hgb 8.8 L (12.9-16.9) g/dL Hct 29.7 L (37.5-50.1) % Plt Count 296 (140-400) K/mcL Neutrophils # 4.5 (1.6-8.9) K/mcL BMP 07/10/17 04:40 Sodium 138 Potassium 4.4 Chloride 109 H Carbon Dioxide 22 L BUN 23 Creatinine 1.11 Glucose 100 Calcium 8.7 - ABG Interpretation ABG results: PT/INR, D-dimer PT 11.8 Seconds (9.4-12.1) 07/08/17 05:23 Consult Discharge Plan - Plan Referrals: Luiz Hyatt MD [Primary Care Provider] - 07/13/17 3:30 pm
[2017-07-10] MEDS: Doxycycline 100 MG in 0.9 % Sodium Chloride Mini Bag 100 ML IVPB SCH (14:33)
[2017-07-11] MEDS: Meropenem 1,000 MG in Water for inj. (sterile) 20 ML 10 ML IVP SCH ×2 (01:18→08:19)
[2017-07-11] MEDS: Doxycycline 100 MG in 0.9 % Sodium Chloride Mini Bag 100 ML IVPB SCH ×2 (01:23→13:58)
[2017-07-11 04:23] LABS: Basophils # 0.1 K/mcL (0.0-0.2); Basophils % 0.8 %; Eosinophils # 0.6 K/mcL (0.0-0.6); Hematocrit 31.5 % (37.5-50.1); Hemoglobin 9.3 g/dL (12.9-16.9); Immature Granulocytes % 0.4 % (0-4); Lymphocytes # 1.3 K/mcL (0.6-4.6); Lymphocytes % 17.5 %; Mean Corpuscular HGB Conc 29.5 g/dL (31.6-35.5); Mean Corpuscular Hemoglobin 22.5 pg (28.0-33.3); Mean Corpuscular Volume 76.1 fL (83.0-100.0); Mean Platelet Volume 8.6 fL (9.4-12.4); Monocytes # 1.1 K/mcL (0.0-1.3); Monocytes % 15.1 %; Neutrophils # 4.3 K/mcL (1.6-8.9); Platelet Count 310 K/mcL (140-400); Red Blood Count 4.14 M/mcL (4.19-5.50); Red Cell Distribution Width 17.7 % (11.5-14.5); Segmented Neutrophils % 58.2 %
[2017-07-11 05:08] LABS: BUN/Creatinine Ratio 20 (6-26); Blood Urea Nitrogen 21 mg/dL (8-23); Calcium 8.8 mg/dL (8.6-10.3); Carbon Dioxide 22 mEq/L (23-29); Chloride 108 mEq/L (98-107); Glucose 110 mg/dL (70-105); Osmolality,Calculated 290 (280-300); Sodium 138 mEq/L (136-145); eGFR For African Americans > 60 (> 60); eGFR For Non-African Americans > 60 (> 60)
[2017-07-11] MEDS: Aspirin Enteric Coated 81 MG Tablet PO SCH (08:11)
[2017-07-11] MEDS: Sennosides/Docusate Sodium TABLET PO SCH (08:11)
--- NOTE | 2017-07-11 09:34 | Urology Progress Note ---
Date of Encounter: 07/11/17 Time of Encounter: 09:32 - Assessment and Plan (1) Sepsis Current Visit: Yes Status: Acute Qualifiers: Sepsis type: sepsis due to unspecified organism Qualified Code(s): A41.9 - Sepsis, unspecified organism (2) UTI (urinary tract infection) Current Visit: Yes Status: Acute Assessment and plan: His infection is resolving. We will transition to oral antibiotics upon discharge. Qualifiers: Qualified Code(s): N39.0 - Urinary tract infection, site not specified (3) BPH w urinary obs/LUTS Current Visit: Yes Status: Acute Assessment and plan: He has an enlarged prostate and has redeveloped urinary retention. I recommend proceeding with a greenlight laser photo vaporization of prostate. We'll schedule this electively. He'll be discharged home and I will schedule him for surgery. We discussed the risks involved with the operation which include but are not limited to bleeding, infection, injury to other structures, need for further procedures, scar tissue, bladder neck contracture, retrograde ejaculation, urethral stricture, erectile dysfunction, dysuria, urinary incontinence, and the risk of anesthesia. He is willing to proceed. Progress Note Narrative: 77-year-old man with a history of BPH and incomplete bladder emptying is seen in follow-up. He developed increased postvoid residuals and a Rodarte catheter was replaced. His urine is yellow. He is tolerated and the catheter. Objective Initial Vital Signs Temp Pulse Resp BP Pulse Ox 102.1 F H 97 16 107/66 97 07/08/17 05:14 07/08/17 05:14 07/08/17 05:14 07/08/17 05:14 07/08/17 05:14 - General physical appearance Present: well developed, well nourished, no distress - Respiratory Present: normal respiratory effort - Genitourinary Urine Appearance: Present: Clear - Labs 07/11/17 03:56 07/11/17 03:56 Diabetes panel 07/11/17 Range/Units 03:56 Sodium 138 (136-145) mEq/L Potassium 4.0 (3.5-5.1) mEq/L Chloride 108 H (98-107) mEq/L Carbon Dioxide 22 L (23-29) mEq/L BUN 21 (8-23) mg/dL Creatinine 1.05 (0.70-1.30) mg/dL Glucose 110 H (70-105) mg/dL Calcium 8.8 (8.6-10.3) mg/dL Calcium panel 07/11/17 Range/Units 03:56 Calcium 8.8 (8.6-10.3) mg/dL Pituitary panel 07/11/17 Range/Units 03:56 Sodium 138 (136-145) mEq/L Potassium 4.0 (3.5-5.1) mEq/L Chloride 108 H (98-107) mEq/L Carbon Dioxide 22 L (23-29) mEq/L BUN 21 (8-23) mg/dL Creatinine 1.05 (0.70-1.30) mg/dL Glucose 110 H (70-105) mg/dL Calcium 8.8 (8.6-10.3) mg/dL Adrenal panel 07/11/17 Range/Units 03:56 Sodium 138 (136-145) mEq/L Potassium 4.0 (3.5-5.1) mEq/L Chloride 108 H (98-107) mEq/L Carbon Dioxide 22 L (23-29) mEq/L BUN 21 (8-23) mg/dL Creatinine 1.05 (0.70-1.30) mg/dL Glucose 110 H (70-105) mg/dL Calcium 8.8 (8.6-10.3) mg/dL Consult Discharge Plan - Plan Referrals: Luiz Hyatt MD [Primary Care Provider] - 07/13/17 3:30 pm
[2017-07-11 16:24] VITALS: BP 144/69
[2017-07-11] MEDS ORDERED: Cyanocobalamin (B-12) 1,000 MCG TABLET PO SCH (16:30)
--- NOTE | 2017-07-11 16:42 | Discharge Summary ---
Date of Encounter: 07/11/17 Time of Encounter: 16:41 - Discharge Diagnosis (1) BPH w urinary obs/LUTS Priority: Primary Status: Acute Comments: Patient has a large prostate he developed urinary retention with void residuals greater than 400. Rodarte catheter was placed. Urology did see the patient he will be scheduled for greenlight laser photo vaporization of the prostate per urology as outpatient. He will continue with antibiotics as well as Rodarte catheter as outpatient (2) Sepsis Priority: Primary Status: Acute Comments: 1 originally he presented with tachycardia and elevated white count. Blood cultures were negative urine culture did show Enterobacter cloace complex and enterococcus species was started on meropenem and doxycycline per sensitivity.- He was given IV fluids he returned back to baseline white count down to 7 Qualifiers: Sepsis type: sepsis due to unspecified organism Qualified Code(s): A41.9 - Sepsis, unspecified organism (3) Acute cystitis with hematuria Priority: Primary Status: Acute Comments: He is improving has been on meropenem and doxycycline. We will transition to oral antibiotics sensitive to Levaquin and Doxy Patient will follow-up with urology We will continue with Rodarte catheter as outpatient (4) Coronary artery disease Priority: Secondary Status: Chronic Comments: Continue with dual antiplatelet therapy and statins Qualifiers: Coronary Disease-Associated Artery/Lesion type: [place] artery [place] vs. transplanted heart: [place] heart Associated angina: without angina Qualified Code(s): I25.10 - Atherosclerotic heart disease of [place] coronary artery without angina pectoris (5) Status post hernia repair Priority: Secondary Status: Chronic Comments: Incision healing well CT abdomen and pelvis shows no apparent complications. (6) Microcytic hypochromic anemia Priority: Secondary Status: Acute Comments: Continue with iron as well as B12 Colace twice a day - Discharge Medications Prescriptions: Cyanocobalamin (B-12) [Vitamin B12] 1,000 mcg PO DAILY #30 tablet Doxycycline 100 mg PO BID 14 Days #28 capsule Ferrous Sulfate 325 mg PO DAILY@0800 #30 tablet Levofloxacin [Levaquin] 750 mg PO DAILY 5 Days #5 tablet Home Medications: Aspirin [Lo-Dose Aspirin EC] 81 mg PO DAILY 06/18/17 [History] Clopidogrel [Plavix] 75 mg PO DAILY 06/18/17 [History] Lisinopril [Zestril] 5 mg PO HS 06/18/17 [History] Simvastatin [Zocor] 20 mg PO HS 06/18/17 [History] Nitroglycerin [Nitrostat] 0.4 mg SL Q5M PRN 07/08/17 [History] Tamsulosin [Flomax] 0.4 mg PO DAILY 07/08/17 [History] Cyanocobalamin (B-12) [Vitamin B12] 1,000 mcg PO DAILY #30 tablet 07/11/17 [Rx] Doxycycline 100 mg PO BID 14 Days #28 capsule 07/11/17 [Rx] Ferrous Sulfate 325 mg PO DAILY@0800 #30 tablet 07/11/17 [Rx] Levofloxacin [Levaquin] 750 mg PO DAILY 5 Days #5 tablet 07/11/17 [Rx] Allergies/Adverse Reactions: 3 Allergy/AdvReac Type Severity Reaction Status Date / Time No Known Allergies Allergy Verified 06/18/17 13:29 Date of admission: 07/08/17 10:38 Primary care physician: Luiz Hyatt MD Consults: 07/08/17 10:42 Consult to Urology [CONS] Routine Consulting Provider: [facility] [place] Reason for Consult: Emphysematous cystitis, recent history of urinary retention Call Completed: Yes Discharging clinician: Dorcas Barton Anticipated date of discharge: 07/11/17 - Patient Status Disposition: Home, Self-Care Condition: Fair Functional capacity at discharge: independent ambulation Overall status at discharge: patient is progressing back to baseline - Discharge Instructions Follow Up With: Luiz Hyatt MD [Primary Care Provider] - 07/13/17 3:30 pm Stefan Bashir MD [Partnered Physician] - Interval History: Patient presented to the ER complaining of fevers chills altered mental state. His aseptic white count tachycardia. Empirically started on antibiotics and given IV fluids. Patient has enlarged prostate redeveloped urinary retention. He had been experiencing postvoid residuals of form 500. Rodarte catheter has been placed urology has seen patient and will undergo greenlight laser photo vaporization of prostate as outpatient. Antibiotics have been adjusted to sensitivity he will be discharged on oral antibiotics. Patient also has history of anemia associated with iron as well as B12 which she will continue her home [place] patient is eating and drinking without difficulty vital signs are stable denies any pain or discomfort Rodarte is draining without difficulty. He will be discharged home and will follow-up with urology as an outpatient Hospital course: Mr. Prince is a 77 year old male She is status post right open inguinal hernia repair from 06/18/2014. After surgery he did develop urinary retention. He was initiated on tamsullosin and eventually passed a voiding trial on July 06. On the of this month he developed fevers and chills and became altered. He was brought to the emergency department and was found to have a urinary tract infection as well as sepsis with elevated white count as well as tachycardia. CT scan showed evidence of prostatic hyperplasia with a diverticulum extending off the dome of the bladder to the left side. Evidence of emphysematous pyelonephritis. He was initiated on empiric antibiotic coverage given IV fluids urology was consulted. Patient had elevated postvoid residuals eventually required reinsertion of Rodarte catheter. Blood cultures were negative urine cultures did reveal Enterobacter cloacae complex, enterococcus species-initiated on meropenem as well as doxycycline. White count eventually returned to baseline urology recommending proceeding with greenlight laser photo vaporization of prostate scheduled as elective surgery as outpatient. He will follow-up with both her primary care physician as well as his urologist. Presently he is eating and drinking well has been afebrile denies any pain or discomfort and is ready for discharge. He is hemodynamically stable and ready for discharge - Time Spent with Patient Total time spent providing and/or coordinating discharge services: - Constitutional Vitals: Temp Pulse Resp BP Pulse Ox 98.9 F 66 15 144/69 99 07/11/17 16:07 07/11/17 16:07 07/11/17 16:07 07/11/17 16:07 07/11/17 16:07 General appearance: Present: A&O X 3, no acute distress - Head Head exam: Present: atraumatic, normocephalic - Eye Eye exam: Present: PERRL, conjuntiva pink, sclera anicteric Pupils: Present: PERRL - Neck Neck exam general surgery: Present: supple, trachea midline. Absent: lymphadenopathy - Respiratory Respiratory exam: Present: CTAB. Absent: accessory muscle use, rales, rhonchi, wheezes - Cardiovascular Cardiovascular exam: Present: RRR, +S1, +S2. Absent: diastolic murmur, gallop, rubs, systolic murmur - GI/Abdominal GI/Abdominal exam: Present: normal bowel sounds, soft, no peritoneal signs. Absent: distended, tenderness - Extremities Exam Extremities exam: Present: warm, radial pulses palpable and symmetrical. Absent : calf tenderness, cyanotic, pedal edema - Neurological Exam Neurological exam: Present: CN II-XII intact, oriented X3, no focal deficits. Absent: pronater drift, facial droop, speech deficit - Skin Skin exam: Present: dry, intact
== END 2017-07-11 18:30 | disposition home or self-care (01) | DRG 872 ==
LOC: EMEROO 05:09 → 3BNU 05:09
PROVIDERS: ADMIT Internal Medicine; ATTEND Registered Nurse